=== PATIENT | male | born 1960 | race Caucasian/White ===

== ENCOUNTER 2019-07-06 08:57 | Outpatient (CLI) | payer BC, SELFPAY ==
[2019-07-06 10:39] LABS: ALT 24 U/L (16-63); AST 19 U/L (15-37); Albumin 3.8 g/dL (3.4-5.0); Alkaline Phosphatase 56 U/L (46-116); Anion Gap 11.3 mmol/L (3-11); BUN 16 mg/dL (7-18); Bilirubin, Total 0.5 mg/dL (0.2-1.0); CO2 24.7 mmol/L (21.0-32.0); CREATININE 1.13 mg/dL (0.70-1.30); Calcium 9.2 mg/dL (8.5-10.1); Calculated LDL 172 mg/dL; Chloride 104 mmol/L (98-107); Cholesterol 276 mg/dL (<200); Glucose 95 mg/dL (74-106); HDL Cholesterol 39 mg/dL (40-60); Potassium 4.5 mmol/L (3.5-5.1); Sodium 140 mmol/L (136-145); Total Protein 6.8 g/dL (6.4-8.2); Triglyceride 329 mg/dL (<150)
[2019-07-07 13:05] LABS: HIV-1/2 Ag & Ab Screen Negative (Negative)
[2019-07-07 13:06] LABS: Hepatitis C Ab w Rflx HCV PCR Negative (Negative)
== END 2019-07-06 09:17 ==
PROVIDERS: PCP Nurse Practitioner Family; Visit Provider Nurse Practitioner Family
DX: E78.5 Hyperlipidemia, unspecified (principal); Z13.1 Encounter for screening for diabetes mellitus; Z11.4 Encounter for screening for human immunodeficiency virus [HIV]; Z11.59 Encounter for screening for other viral diseases
CPT/HCPCS: 36415; 80053; 80061; 86803; 87389

== ENCOUNTER 2019-08-05 11:26 | Outpatient (CLI) | payer BC, SELFPAY ==
--- NOTE | 2019-08-05 11:10 | DI.RAD_ITS ---
EXAM: XR SHOULDER RT COMPLETE 2+V CLINICAL HISTORY: Rt shoulder pain, M25.511, history of left shoulder dislocations. TECHNIQUE: COMPARISON: No exams were available for comparison FINDINGS: Five views were obtained. There are prominent hypertrophic degenerative changes at the acromioclavic ular joint. There is mild narrowing of the cartilaginous joint space of the glenohumeral joint with prominent marginal osteophyte formation of the humeral head and the glenoid. Minimal inferior acromi al spurring also noted. Humeral head does not appear subluxed. IMPRESSION: Degenerative changes of glenohumeral and AC joints, no evidence of acute fracture or dislocation.
== END 2019-08-05 11:46 ==
PROVIDERS: PCP Nurse Practitioner Family; Visit Provider Nurse Practitioner
DX: M25.511 Pain in right shoulder (principal); M19.011 Primary osteoarthritis, right shoulder
CPT/HCPCS: 73030

== ENCOUNTER → 2022-02-06 01:55 | Outpatient (CLI) | payer BC, SELFPAY ==
--- NOTE | 2022-02-06 07:00 | DI.RAD_ITS ---
Exam(s) XR THUMB LT EXAM: XR THUMB LT CLINICAL HISTORY: left thumb pain after hitting it on cement,M79.645. TECHNIQUE: 2D digital imaging was performed. Four views. COMPARISON: None. FINDINGS: BONES: No acute fracture is present. No bony destructive lesion is seen. Degenerative changes are no jennie of the interphalangeal joints. JOINTS: No dislocation present. SOFT TISSUE: Normal. IMPRESSION: Degenerative changes. No acute abnormality. DATA REPOSITORY: RADIATION DOSE DELIVERED:
== END ==
PROVIDERS: PCP Nurse Practitioner Family; Visit Provider Family Medicine
DX: M79.645 Pain in left finger(s) (principal)
CPT/HCPCS: 73140

== ENCOUNTER 2022-08-16 01:32 | Outpatient (CLI) | payer BC, SELFPAY ==
[2022-08-16 12:35] LABS: ALT 32 U/L (16-63); AST 23 U/L (15-37); Alkaline Phosphatase 58 U/L (46-116); Anion Gap 6.2 mmol/L (3-11); BUN 16 mg/dL (7-18); Bilirubin, Total 0.5 mg/dL (0.2-1.0); CO2 27.8 mmol/L (21.0-32.0); CREATININE 1.2 mg/dL (0.70-1.30); Calcium 9.1 mg/dL (8.5-10.1); Chloride 105 mmol/L (98-107); Estimated GFR 67.95 (mL/min/1.73m2); Glucose 95 mg/dL (74-106); Potassium 4.5 mmol/L (3.5-5.1); Sodium 139 mmol/L (136-145); Total Protein 7.1 g/dL (6.4-8.2); Uric Acid 8.3 mg/dL (3.5-7.2)
[2022-08-16 12:38] LABS: Abs Immature Grans 0.02 10^3/uL (0.0-0.06); Absolute Basophil Count 0.04 10^3/uL (0.0-0.2); Absolute Eosinophil Count 0.29 10^3/uL (0.0-0.7); Absolute Lymphocyte Count 2.35 10^3/uL (1.2-3.4); Absolute Monocyte Count 0.34 10^3/uL (0.1-0.8); Absolute Neutrophil Count 2.53 10^3/uL (1.2-6.7); Basophils % 0.7; Eosinophils % 5.2; HCT 40.4 % (40.0-50.0); HGB 13.5 g/dL (13.5-17.5); Immature Grans % 0.4; Lymphocytes % 42.2; MCHC 33.4 % (32.0-36.0); MCV 93 fL (80-95); MPV 9.6 fL (8.0-11.0); Monocytes % 6.1; Neutrophils % 45.4; Platelet Count 221 10^3/uL (130-400); RBC 4.35 10^6/uL (4.36-5.78); RDW 13.4 % (11.8-14.1); RDW-SD 46.3 fL; WBC 5.57 10^3/uL (4.4-10.8)
[2022-08-16 12:40] LABS: C-Reactive Protein < 0.05 mg/dL (0.0-0.3)
[2022-08-16 12:54] LABS: ESR 1 mm/hr (0-20)
== END 2022-08-16 01:33 | disposition home or self-care (01) ==
LOC: LOS 01:32
PROVIDERS: PCP Nurse Practitioner Family; Visit Provider Nurse Practitioner Family
DX: M10.9 Gout, unspecified (principal); M25.461 Effusion, right knee; M25.462 Effusion, left knee; E66.9 Obesity, unspecified; Z13.1 Encounter for screening for diabetes mellitus
CPT/HCPCS: 36415; 80053; 85652; 84550; 85025; 86140

== ENCOUNTER → 2023-10-03 13:47 | Outpatient (CLI) | payer BC, OTHER, SELFPAY ==
--- NOTE | 2023-10-03 12:45 | DI.RAD_ITS ---
Exam(s) XR SHOULDER RT COMPLETE 2+V EXAM: XR SHOULDER RT COMPLETE 2+V CLINICAL HISTORY: Bony abnormality on exam, rt shoulder pain, M25.511. TECHNIQUE: 2D digital imaging was performed. Five views. COMPARISON: CR XR SHOULDER RT COMPLETE 2+V from 08/05/2019 FINDINGS: BONES: No acute fracture is present. No bony destructive lesion is seen. Spurring at the tip of the acromion and greater tuberosity. JOINTS: No dislocation present. Prominent spurring at the AC joint. Glenohumeral joint space shows mild narrowing. Mild spurring at the glenohumeral joint. Calcificati ons noted adjacent to greater tuberosity could indicate calcific tendinosis. SOFT TISSUE: Normal. IMPRESSION: Stable degenerative changes. Calcific tendinosis. DATA REPOSITORY: RADIATION DOSE DELIVERED:
== END ==
PROVIDERS: PCP Nurse Practitioner Family; Visit Provider Family Medicine
DX: M25.511 Pain in right shoulder (principal); M75.31 Calcific tendinitis of right shoulder; M19.011 Primary osteoarthritis, right shoulder
CPT/HCPCS: 73030

== ENCOUNTER → 2025-03-21 08:34 | Outpatient (BNVA) | payer MEDICARE, SELFPAY | PROVIDERS: PCP Family Medicine; Referring Provider Family Medicine; Visit Provider Nurse Practitioner Gerontology | DX: N43.40 Spermatocele of epididymis, unspecified (principal) | CPT/HCPCS: 99213 ==

== ENCOUNTER → 2025-05-11 08:22 | Outpatient (BNVA) | payer MEDICARE, SELFPAY | PROVIDERS: Visit Provider Student in an Organized Health Care Education/Training Program | DX: M75.101 Unspecified rotator cuff tear or rupture of right shoulder, not specified as traumatic (principal); M19.011 Primary osteoarthritis, right shoulder; S46.211A Strain of muscle, fascia and tendon of other parts of biceps, right arm, initial encounter; X50.0XXA Overexertion from strenuous movement or load, initial encounter | CPT/HCPCS: 99213 ==

== ENCOUNTER → 2025-06-01 00:55 | Outpatient (CLI) | payer MEDICARE, SELFPAY ==
--- NOTE | 2025-06-01 09:15 | DI.MRI_ITS ---
Exam(s) MR UPPER JOINT RT WO EXAM: MR UPPER JOINT RT WO CLINICAL HISTORY: R SHOULDER PAIN,RT ROTATOR CUFF TEAR,ARTHRITIS RT GLENOHUMERAL. TECHNIQUE: Multiplanar multisequence MRI was performed. COMPARISON: CR XR SHOULDER RT COMPLETE 2+V from 10/03/2023 FINDINGS: BONES: There is no fracture or contusion pattern. JOINTS: There are marked degenerative changes seen at the acromioclavicular joint with subchondral cysts and hypertrophic changes present. There also degenerative changes seen at the glenohumeral joint. There is a small amount of fluid in the joint space. There is superior subluxation of the humeral head relative to the glenoid. TENDONS: Supraspinatus: There is a complete tear of the supraspinatus tendon almost to the level of the acromioclavicular joint. Infraspinatus: There is a complete tear of the infraspinatus muscle with retraction. Subscapularis: Unremarkable. Teres Minor: Unremarkable. Biceps and [place]: Unremarkable. MUSCLES: There is mild fatty atrophy of the supraspinatus and subscapularis muscles. There is marked fatty atrophy of the infraspinatus muscle. GLENOID LABRUM: There is fraying of the superior labrum. There is a small cysts seen at the posterior superior aspect of the labrum which may represent a paralabral cyst. A tear of the posterior superior labrum should be considered. SOFT TISSUES: Unremarkable. LIGAMENTS: Unremarkable. OTHER: There is a small amount of fluid seen in the subacromial subdeltoid bursa consistent with a rotator cuff tear. IMPRESSION: 1. Complete tears involving the supraspinatus and infraspinatus tendons with retraction. 2. Mild fatty atrophy of the supraspinatus and subscapularis muscles and marked fatty atrophy of the infraspinatus muscle. 3. Findings suspicious for tear and small paralabral cyst involving the posterior superior labrum. 4. Marked degenerative changes seen at the acromioclavicular joint. 5. Degenerative changes at the glenohumeral joint and superior subluxation of the humeral head relative to the glenoid which can be seen with rotator cuff tears. DATA REPOSITORY:
== END ==
LOC: DI 00:56
PROVIDERS: Visit Provider Student in an Organized Health Care Education/Training Program
DX: M19.011 Primary osteoarthritis, right shoulder (principal); M75.121 Complete rotator cuff tear or rupture of right shoulder, not specified as traumatic
CPT/HCPCS: 73221

== ENCOUNTER → 2025-06-08 10:31 | Outpatient (BNVA) | payer MEDICARE, SELFPAY | PROVIDERS: Visit Provider Student in an Organized Health Care Education/Training Program | DX: M19.011 Primary osteoarthritis, right shoulder (principal); S46.211A Strain of muscle, fascia and tendon of other parts of biceps, right arm, initial encounter; X58.XXXA Exposure to other specified factors, initial encounter | CPT/HCPCS: 99213; 20610; J1010 ==

== ENCOUNTER → 2025-07-04 08:12 | Outpatient (BNVA) | payer MEDICARE, SELFPAY | PROVIDERS: Visit Provider Student in an Organized Health Care Education/Training Program | DX: Z12.11 Encounter for screening for malignant neoplasm of colon (principal) | CPT/HCPCS: S0285 ==